=== PATIENT | male | born 1955 | race African-American/Black ===

== ENCOUNTER 2018-10-07 07:22 | Day surgery (SDC) | payer MEDICARE ==
[~2018-10-07] VITALS: Ht 190.5 cm; Wt 98.0 kg
[~2018-10-07 07:22] MED LIST: ANTIVERT OR; FLEXERIL10 MG PO; MECLIZINE25 MG PO; MEDDOSEPAK OR; NAPROSYN500 MG PO; NO; NO HOME MEDS; REGLAN10 MG OR
[2018-10-07 09:52] VITALS: BP 115/62
== END 2018-10-07 10:02 | disposition home or self-care (01) ==
LOC: ENDO 07:22
PROVIDERS: ATTEND Surgery
PROC: 0DJD8ZZ Inspection of Lower Intestinal Tract, Via Natural or Artificial Opening Endoscopic (ICD-10-PCS; principal; 2018-10-07)
DX: Z12.11 Encounter for screening for malignant neoplasm of colon (principal); K57.30 Diverticulosis of large intestine without perforation or abscess without bleeding; K64.8 Other hemorrhoids